=== PATIENT | male | born 1955 | race Caucasian/White ===

== ENCOUNTER → 2018-09-24 | Outpatient (CLI) | payer BC | END | disposition home or self-care (01) | LOC: LAB EV 10:55 → LAB SHORT 10:55 | DX: J02.9 Acute pharyngitis, unspecified (principal) | CPT/HCPCS: 87070 ==

== ENCOUNTER 2019-01-26 12:46 | Observation (INO) | payer BC ==
[~2019-01-26] VITALS: Ht 167.6 cm; Wt 92.4 kg
[2019-01-26] MEDS ORDERED: HUMIRA40 MG/0.8 SC (13:42)
[2019-01-26] MEDS ORDERED: CITA20 PO (13:42)
[2019-01-26] MEDS ORDERED: Terazosin HCl10 MG PO (13:42)
[2019-01-26] MEDS ORDERED: ATEN25 PO (13:43)
[2019-01-26] MEDS ORDERED: METTREX2.5 PO (13:43)
[2019-01-26] MEDS ORDERED: Simvastatin10 MG PO (13:44)
[2019-01-26 14:27] LABS: BASOPHILS ABSOLUTE AUTO 0.03 K/mm3 (0.00-0.23); BASOPHILS PERCENT AUTO 1 % (0-2); EOSINOPHILS ABSOLUTE AUTO 0.07 K/mm3 (0.00-0.68); EOSINOPHILS PERCENT AUTO 1 % (0-6); Hematocrit 40.7 % (37.0-53.0); IMMATURE GRAN ABSOLUTE AUTO 0.01 K/mm3 (0.00-0.10); IMMATURE GRAN PERCENT AUTO 0 % (0-1); LYMPHOCYTES ABSOLUTE AUTO 2.08 K/mm3 (0.84-5.20); LYMPHOCYTES PERCENT AUTO 35 % (21-46); MONOCYTES ABSOLUTE AUTO 0.75 K/mm3 (0.16-1.47); MONOCYTES PERCENT AUTO 13 % (4-13); Mean Corpuscular HGB 30.9 pg (26.0-34.0); Mean Corpuscular HGB Conc 34.4 g/dL (31.5-36.5); Mean Corpuscular Volume 90 fL (80-100); Mean Platelet Volume 9.3 fL (9.1-12.4); NEUTROPHILS ABSOLUTE AUTO 2.99 K/mm3 (1.96-9.15); NEUTROPHILS PERCENT AUTO 50 % (41-73); Platelet Count 226 K/mm3 (150-400); RDW Standard Deviation 42.5 fL (35.1-46.3); Red Blood Cell Count 4.53 M/mm3 (4.30-5.90); White Blood Cell Count 5.93 K/mm3 (4.00-11.30)
[2019-01-26 14:32] LABS: Alanine Aminotransfer (ALT/SGP 39 U/L (12-78); Albumin, Blood 3.9 g/dL (3.4-5.0); Albumin/Globulin Ratio 1.1 (0.8-1.8); Alk Phos 54 U/L (50-136); Anion Gap 6 mmol/L (6-16); Aspartate Aminotrans (AST/SGOT 21 U/L (12-37); Bilirubin, Total 0.2 mg/dL (0.1-1.0); Blood Urea Nitrogen 15 mg/dL (8-24); Bun/Creatinine Ratio 17.1 (12.0-20.0); CO2, Blood 26 mmol/L (21-32); Calcium, Blood 8.5 mg/dL (8.5-10.1); Chloride, Blood 110 mmol/L (98-108); Creatinine, Blood 0.88 mg/dL (0.60-1.20); Globulin, Blood 3.4 g/dL (2.2-4.0); Glomerular Filtration Rate >60 (60-); Glucose, Blood 98 mg/dL (70-99); Potassium, Blood 3.9 mmol/L (3.5-5.5); Sodium, Blood 142 mmol/L (136-145); Total Protein, Blood 7.3 g/dL (6.4-8.2); Troponin I <0.015 ng/mL (0.000-0.040)
[2019-01-26] MEDS ORDERED: ASPI325EC PO (16:19)
[2019-01-26] MEDS ORDERED: PHENY30ER PO (16:20)
--- NOTE | 2019-01-26 18:01 | NUR ---
ER ADMIT- PT ARRIVED TO ROOM 308 VIA GURNEY. PT INDEP INTO BED. PT A/0X4. REPORTS 2/10 PAIN TO RIGHT SHOULDER FROM HX ROTATOR CUFF TEAR. LS CLEAR, ON RA. HRR, TELE NSR AT 88 PT DENIES ANY CP. PT SITTING UP AT BEDSIDE TALKING WITH FAMILY EATING DINNER. STRESS TEST TOMORROW AM. PT ORIENTED TO ROOM AND CALL SYSTEM, CALL LIGHT IN REACH.
[2019-01-27 03:07] LABS: BASOPHILS ABSOLUTE AUTO 0.04 K/mm3 (0.00-0.23); BASOPHILS PERCENT AUTO 1 % (0-2); EOSINOPHILS ABSOLUTE AUTO 0.14 K/mm3 (0.00-0.68); EOSINOPHILS PERCENT AUTO 2 % (0-6); Hematocrit 40.9 % (37.0-53.0); Hemoglobin 13.9 g/dL (13.5-17.5); IMMATURE GRAN ABSOLUTE AUTO 0.01 K/mm3 (0.00-0.10); IMMATURE GRAN PERCENT AUTO 0 % (0-1); LYMPHOCYTES PERCENT AUTO 45 % (21-46); MONOCYTES ABSOLUTE AUTO 0.73 K/mm3 (0.16-1.47); MONOCYTES PERCENT AUTO 12 % (4-13); Mean Corpuscular HGB 30.6 pg (26.0-34.0); Mean Corpuscular Volume 90 fL (80-100); Mean Platelet Volume 9.1 fL (9.1-12.4); NEUTROPHILS ABSOLUTE AUTO 2.51 K/mm3 (1.96-9.15); NEUTROPHILS PERCENT AUTO 40 % (41-73); Platelet Count 212 K/mm3 (150-400); RDW Coefficient Variation 12.9 % (11.7-14.2); RDW Standard Deviation 42.3 fL (35.1-46.3); Red Blood Cell Count 4.54 M/mm3 (4.30-5.90); White Blood Cell Count 6.23 K/mm3 (4.00-11.30)
[2019-01-27 03:24] LABS: Anion Gap 4 mmol/L (6-16); Blood Urea Nitrogen 18 mg/dL (8-24); Bun/Creatinine Ratio 19.8 (12.0-20.0); CO2, Blood 29 mmol/L (21-32); Calcium, Blood 8.4 mg/dL (8.5-10.1); Chloride, Blood 108 mmol/L (98-108); Creatinine, Blood 0.91 mg/dL (0.60-1.20); Glomerular Filtration Rate >60 (60-); Glucose, Blood 92 mg/dL (70-99); Potassium, Blood 3.8 mmol/L (3.5-5.5); Sodium, Blood 141 mmol/L (136-145)
--- NOTE | 2019-01-27 04:53 | NUR ---
SHIFT SUMMARY: PT IS ALERT AND ORIENTED. PT IS CALM AND COOPERATIVE WITH CARE. PT CALLS APPROPRIATELY. PT IS INDEPENDENT IN THE ROOM. PT NPO @ 0300 FOR STRESS TEST THIS AM. PT DENIES PAIN, NAUSEA, VOMITING, AND SOB. PT SLEPT MUCH OF THE NIGHT WHEN NOT DISTURBED. NO ACUTE CHANGES OR COMPLICATIONS THIS SHIFT. BED IN LOW POSITION, CALL LIGHT WITHIN REACH. WILL CONTINUE TO MONITOR.
--- NOTE | 2019-01-27 14:54 | NUR ---
Patient and , Bailey are waiting for "pictures" to be taken of patient's heart. Patient states that the chest pains he had when he came in to the hospital with have completely stopped. Patient's nurse came in to patient's room to set him up for his shower and so I asked patient if I could pray for him and he affirmed that he would like that. I provided prayer. Patient and Bailey thanked me.
--- NOTE | 2019-01-27 17:02 | NUR ---
SHIFT SUMMARY- PT A/OX4, INDEP IN ROOM. PT DENIES ANY COMPLAINTS T/O THE SHIFT. LE CLEAR, ON RA. HRR, TELE NSR AT 73. STRESS TEST COMPLETED AND CAME BACK ABNORMAL, AWAITING CARDIOLOGY CONSULT. NO OTHER ACUTE CHANGES THIS SHIFT.
--- NOTE | 2019-01-27 17:02 | NUR ---
SPOKE WITH DR FRIEDMAN, PER DR FRIEDMAN STRESS TEST RESULTS WERE ABNORMAL. HE WILL KEEP PT AND PLACE CONSULT FOR CARDIOLOGY.
--- NOTE | 2019-01-27 17:20 | NUR ---
CONSULT CALLED INTO [facility] FOR DR HARLEY FOR THURSDAY THE , PER DR VILLATORO THEY DO NOT TAKE CONSULTS AFTER 1700 UNLESS ITS AN EMERGENCY.
--- NOTE | 2019-01-28 04:29 | NUR ---
SHIFT SUMMARY: PT IS ALERT AND ORIENTED. PT IS CALM AND COOPERATIVE WITH CARE. PT CALLS APPROPRIATELY. PT IS INDEPENDENT IN THE ROOM. PT TO HAVE SECOND PART OF STRESS TEST THIS AM, NPO 4 HOURS PRIOR TO PROCEDURE. PT DENIES PAIN, NAUSEA, VOMITING, AND SOB. NO ACUTE CHANGES OR COMPLICATIONS THIS SHIFT. WILL CONTINUE TO MONITOR.
[2019-01-28] MEDS ORDERED: Isosorbide Mono30 MG PO (11:11)
[2019-01-28] MEDS ORDERED: NITR.4SL SL (11:12)
--- NOTE | 2019-01-28 11:35 | NUR ---
DISCHARGE SUMMARY PT DISCHARGED TO HOME. PT EDUCATED ON NEW MEDICATIONS, TO FOLLOW UP WITH DR HARLEY PER APPOINTMENT AND PCP WITHIN ONE WEEK. PT AGREES AND EXPRESSES UNDERSTANDING. PT LEFT ROOM VIA WHEELCHAIR AND [employer]ORT AT 1130.
== END 2019-01-28 11:29 | disposition home or self-care (01) ==
LOC: ER 12:46 → MEDS 12:47
PROVIDERS: Emergency Medicine; ADMIT Hospitalist
DX: R07.89 Other chest pain (principal); G40.909 Epilepsy, unspecified, not intractable, without status epilepticus; I10 Essential (primary) hypertension; F41.9 Anxiety disorder, unspecified; L40.9 Psoriasis, unspecified; N40.0 Benign prostatic hyperplasia without lower urinary tract symptoms; I25.10 Atherosclerotic heart disease of native coronary artery without angina pectoris; I35.8 Other nonrheumatic aortic valve disorders; I51.7 Cardiomegaly; E78.5 Hyperlipidemia, unspecified; F31.9 Bipolar disorder, unspecified; Z82.49 Family history of ischemic heart disease and other diseases of the circulatory system; Z88.8 Allergy status to other drugs, medicaments and biological substances
CPT/HCPCS: 36415; 71046; 78452; 80048; 80053; 84484; 85025; 93005; 93010; 93017; 93306; 96372; 96374; 99285-25; A9500; G0378; J0706; J1650; J2785; J3010

== ENCOUNTER 2020-02-28 13:26 | Observation (INO) | payer MEDICARE, BC ==
[~2020-02-28] VITALS: Ht 167.6 cm; Wt 88.5 kg
[~2020-02-28 13:26] MED LIST: ATEN25 PO; Aspirin EC81 MG PO; CITA20 PO; HUMIRA40 MG/0.8 SC; Isosorbide Mono30 MG PO; METTREX2.5 PO; NITR.4SL SL; PHENY30ER PO; Simvastatin10 MG PO; Terazosin HCl10 MG PO
[2020-02-28 14:13] LABS: BASOPHILS ABSOLUTE AUTO 0.05 K/mm3 (0.00-0.23); BASOPHILS PERCENT AUTO 1 % (0-2); EOSINOPHILS ABSOLUTE AUTO 0.08 K/mm3 (0.00-0.68); EOSINOPHILS PERCENT AUTO 1 % (0-6); Hematocrit 43.1 % (37.0-53.0); Hemoglobin 14.6 g/dL (13.5-17.5); IMMATURE GRAN ABSOLUTE AUTO 0.02 K/mm3 (0.00-0.10); IMMATURE GRAN PERCENT AUTO 0 % (0-1); LYMPHOCYTES PERCENT AUTO 42 % (21-46); MONOCYTES ABSOLUTE AUTO 0.61 K/mm3 (0.16-1.47); MONOCYTES PERCENT AUTO 11 % (4-13); Mean Corpuscular HGB 31.1 pg (26.0-34.0); Mean Corpuscular HGB Conc 33.9 g/dL (31.5-36.5); Mean Corpuscular Volume 92 fL (80-100); Mean Platelet Volume 9.2 fL (9.1-12.4); NEUTROPHILS ABSOLUTE AUTO 2.55 K/mm3 (1.96-9.15); NEUTROPHILS PERCENT AUTO 45 % (41-73); Platelet Count 238 K/mm3 (150-400); RDW Coefficient Variation 12.9 % (11.7-14.2); RDW Standard Deviation 43.3 fL (35.1-46.3); Red Blood Cell Count 4.69 M/mm3 (4.30-5.90); White Blood Cell Count 5.71 K/mm3 (4.00-11.30)
[2020-02-28 14:39] LABS: Troponin I <0.015 ng/mL (0.000-0.040)
[2020-02-28 14:47] LABS: Alanine Aminotransfer (ALT/SGP 45 U/L (12-78); Albumin, Blood 3.9 g/dL (3.4-5.0); Albumin/Globulin Ratio 1.1 (0.8-1.8); Alk Phos 58 U/L (50-136); Anion Gap 3 mmol/L (6-16); Aspartate Aminotrans (AST/SGOT 24 U/L (12-37); Bilirubin, Total 0.3 mg/dL (0.1-1.0); Blood Urea Nitrogen 15 mg/dL (8-24); Bun/Creatinine Ratio 18.1 (12.0-20.0); CO2, Blood 26 mmol/L (21-32); Calcium, Blood 8.6 mg/dL (8.5-10.1); Chloride, Blood 108 mmol/L (98-108); Creatinine, Blood 0.83 mg/dL (0.60-1.20); Globulin, Blood 3.7 g/dL (2.2-4.0); Glomerular Filtration Rate >60 (60-); Glucose, Blood 96 mg/dL (70-99); Potassium, Blood 3.9 mmol/L (3.5-5.5); Sodium, Blood 137 mmol/L (136-145); Total Protein, Blood 7.6 g/dL (6.4-8.2)
[2020-02-28] MEDS ORDERED: CELEXA10 MG PO (18:28)
[2020-02-28] MEDS ORDERED: PHENYTOIN SODI100 MG PO (18:28)
[2020-02-28] MEDS ORDERED: PHENY30ER PO (18:31)
[2020-02-28] MEDS ORDERED: FOLI1 PO (18:36)
[2020-02-28] MEDS ORDERED: HUMIRA40 MG/0.2 SC (18:37)
--- NOTE | 2020-02-28 18:50 | NUR ---
PCU ADMIT NOTE PATIENT AMBULATED FROM [facility] IN [place] TO UNIT BED - TOLERATED WELL. ALERT AND ORIENTED X4. INDEPENDENT IN ROOM DENIES ANY PAIN AT THIS TIME. ON ROOM AIR. NSR. VSS. WILL CONTINUE TO MONTOR AND REPORT TO NOC SHIFT RN. ORIENTED TO ROOM. PLAN: TREND TROPS
--- NOTE | 2020-02-29 03:43 | NUR ---
ASSUMED CARE OF PATIENT AT 1915. PATIENT HERE FOR ANGINA BUT HAS NO CURRENT COMPLAINTS OF CHEST PAIN. PATIENT RECEIVED DINNER AND EDUCATED ON NPO STATUS STARTING AT MIDNIGHT. PATIENT AGREEABLE AND ANTICIPATING ANGIOGRAM IN THE AM. NO DIZZINESS OR SOB AT REST OR AMBULATION. PATIENT SLEPT THROUGHOUT THE NIGHT. WILL CONTINUE TO MONITOR UNTIL END OF SHIFT.
--- NOTE | 2020-02-29 08:06 | NUR ---
AM NOTE... ASSUMED CARE OF PT APROX 0700, PT IS A&Ox4 AND IND IN THE ROOM. PT WAS ADMITTED FOR ANGINA, PT CURRENTLY DENIES ANY CHEST PAIN/PRESSURE N/V OR SOB. PT IS IN NSR IN THE 70'S. NO EDEMA NOTED ON ASSESSMENT. L/S CLEAR T/O ON RA. BT PRESENT AND HYPERACTIVE, ABD IS SOFT AND NONTENDER TO PALP. PT HAS BEEN NPO SINCE MIDNIGHT FOR ANGIO TODAY. PT HAS BEEN IND TO THE BATHROOM TO VOID. CALL LIGHT IN REACH WILL CONTINUE TO MONITOR.
--- NOTE | 2020-02-29 13:21 | NUR ---
Patient is lying in bed and alert. Patient tells me that he will have a procedure done today to take a look at his heart. Patient shares that he is anxious about the angiogram. Patient's spouse, Bailey is bedside. They explain about their devotion to [place] and the Bible. They explain about the strength and peace that they find in their [place]orm[place]. I listen empathically, normalize patient's experience, reinforce helpful attitudes and practices and provide pastoral grief counselor and prayer. Patient responds well and shows signs of reduced stress. I will continue to remain available to aptient and family.
--- NOTE | 2020-02-29 17:52 | NUR ---
SHIFT SUMMARY... NO ACUTE NEGATIVE CHANGES NOTED THIS SHIFT. PT HAS BEEN NPO ALL DAY WAITING FOR ANGIO TODAY. VS HAVE REMAINED STABLE. PT DENIES ANY CHEST PAIN/PRESSURE N/V OR SOB. PT'S HAS BEEN AT THE BEDSIDE T/O SHIFT. PT HAS BEEN IND TO THE BATHROOM NOT USING THE URNIAL. CALL LIGHT IN REACH WILL CONTINUE TO MONITOR UNTIL REPORT IS GIVEN TO ONCOMING RN.
--- NOTE | 2020-02-29 22:40 | NUR ---
UPDATE PT RECIEVED ANGIO AT START OF SHIFT; TR BAND IN PLACE; ARM BOARD IN PLACE; EXTENSIVE EDUCATION ON NOT USING R ARM AND PT EXPRESSED UNDERSTANDING; APPROXIMATELY @ 2230 PT WENT TO THE BATHROOM AND HAD SMALL AMOUNT OF URINATION ON THE FLOOR THAT HE ATTEMPTED TO CLEAN UP, THE TELE BOX FELL OUT OF HIS POCKET AND HE STATES HE TRIED TO CATCH IT; UPON ENTERING THE ROOM PT WAS FOUND TO BE HOLDING OUT HIS RIGHT ARM FROM HIS BODY W/ BLOOD ON THE FLOOR AND HIS GOWN; PRESSURE WAS HELD ON ARM AT RADIAL SITE AND SPEEDER HAND WAS CALLED TO THE [facility] FOR ASSISTANCE; PT SAT AT BEDSIDE W/ THIS RN HOLDING PRESSURE; OCTAVIO, SPEEDER HAND PROCEEDED TO ASSESS AND CLEAN PATIENT AND FLOOR; TR BAND WAS RE-INFLATED W/ THE 4 CC OF AIR THAT HAD BEEN REMOVED; PT STATES HE FEELS FINE; PT ASSITED TO BED; VSS; NSR NOTED ON TELE; TR BAND IN PLACE; ARM BOARD IN PLACE; CALL LIGHT IN REACH; BED IN LOWEST POSITION.
--- NOTE | 2020-03-01 06:48 | NUR ---
SHIFT SUMMARY PT A&O; DENIES CHEST PAIN; NSR NOTED ON TELE; VSS; TR BAND REMOVED @ 0530 AND FOREARM CLEANED OF DRIED BLOOD; TEGADERM PLACED, ARM BOARD IN PLACE; O2 SATS >93 ON RA; PT AMBULATES FOR BRP W/ NO GAIT DISTURBANCE NOTED; PT SLEPT SEVERAL HOURS IN BETWEEN INTERVENTIONS; CALL LIGHT IN REACH; BED IN LOWEST POSITION; WILL CONTINUE TO MONITOR CLOSELY UNTIL HAND OFF TO DAY SHIFT RN.
[2020-03-01] MEDS ORDERED: Isosorbide Mono30 MG PO (12:26)
[2020-03-01] MEDS ORDERED: BUSP5 PO (12:27)
--- NOTE | 2020-03-01 13:01 | NUR ---
Patient is standing in patient's rm and looking ready to DC. Patient's spouse, Bailey, is present. Patient tells me about the procedure that took place the prior night. Patient is grateful for the outcome. Patient and Bailey talk about the pandemic and how it is effecting them. No spiritual distress is detected. I provide a prayer of blessing as the prepare to DC.
--- NOTE | 2020-03-01 14:29 | NUR ---
PCU DISCHARGE SUMMARY PATIENT ALERT AND ORIENTED X4. RESP E/U ON ROOM AIR. NSR WITH NO CARDIAC EVENTS PER BROOMMAKING SUPERVISORTECH. MEDINA VERBALIZED UNDERSTANDING OF WRITTEN AND VERBAL DISCHARGE INSTRUCTIONS. NEW MEDICATIONS CALLED INTO [facility]. PATIENT LEFT UNIT VIA AMBULATION HOME WITH WITH BELONGINGS.
== END 2020-03-01 13:15 | disposition home or self-care (01) ==
LOC: ER 13:26 → PCU 13:30
PROVIDERS: Physician Assistant; ADMIT Internal Medicine
DX: I25.110 Atherosclerotic heart disease of native coronary artery with unstable angina pectoris (principal); F42.9 Obsessive-compulsive disorder, unspecified; I10 Essential (primary) hypertension; L40.50 Arthropathic psoriasis, unspecified; G40.909 Epilepsy, unspecified, not intractable, without status epilepticus; Z88.8 Allergy status to other drugs, medicaments and biological substances; Z91.040 Latex allergy status; F41.9 Anxiety disorder, unspecified; F32.9 Major depressive disorder, single episode, unspecified; E78.5 Hyperlipidemia, unspecified; N40.0 Benign prostatic hyperplasia without lower urinary tract symptoms; E66.9 Obesity, unspecified; Z87.891 Personal history of nicotine dependence; Z79.82 Long term (current) use of aspirin; Z79.899 Other long term (current) drug therapy; Z68.31 Body mass index [BMI] 31.0-31.9, adult
CPT/HCPCS: 36415; 71046; 76937; 80053; 84484; 85025; 93005; 93010; 93454; 96372; 99152; 99285-25; A9270-GY; C1769; C1894; G0378; J1644; J1650; J2250; J3010; J7030; Q9967

== ENCOUNTER 2021-02-04 12:05 | Day surgery (SDC) | payer MEDICARE, BC ==
[~2021-02-04] VITALS: Ht 167.6 cm; Wt 188.2 kg
[~2021-02-04 12:05] MED LIST changes: +BUSP5 PO; +CELEXA10 MG PO; +FOLI1 PO; +HUMIRA40 MG/0.2 SC; +PHENYTOIN SODI100 MG PO
[2021-02-04] MEDS ORDERED: METO25ER (12:34)
--- NOTE | 2021-02-04 12:41 | NUR ---
02/04/21 1241 Arely Garcias USED PREP.
--- NOTE | 2021-02-04 14:38 | NUR ---
02/04/21 1438 Leonila Tejeda S PT. STATES "MY STOMACH DOESN'T FEEL VERY WELL." PT. DENIES THAT HE FEELS LIKE HE IS GOING TO THROW UP. PT. VERBALIZES HIS STOMACH DOESN'T FEEL GOOD WHEN HE GETS TIRED. DR. PASCUAL AWARE. PT. GIVEN SOME [employer]IST * CRACKERS & PAVEL CRACKERS IN WHICH PT. VERBALIZED FEELING BETTER AFTER EATING SOMETHING.
== END 2021-02-04 14:25 | disposition home or self-care (01) ==
LOC: ORSCSDS 12:05
PROVIDERS: Student in an Organized Health Care Education/Training Program
PROC: 0DBH8ZX Excision of Cecum, Via Natural or Artificial Opening Endoscopic, Diagnostic (ICD-10-PCS; principal; 2021-02-04 13:30)
PROC: 0DBL8ZX Excision of Transverse Colon, Via Natural or Artificial Opening Endoscopic, Diagnostic (ICD-10-PCS; principal; 2021-02-04 13:30)
PROC: 0DBN8ZX Excision of Sigmoid Colon, Via Natural or Artificial Opening Endoscopic, Diagnostic (ICD-10-PCS; principal; 2021-02-04 13:30)
DX: R19.5 Other fecal abnormalities (principal); D12.0 Benign neoplasm of cecum; D12.3 Benign neoplasm of transverse colon; D12.5 Benign neoplasm of sigmoid colon; K57.30 Diverticulosis of large intestine without perforation or abscess without bleeding; K64.8 Other hemorrhoids; I10 Essential (primary) hypertension; E78.5 Hyperlipidemia, unspecified; L40.50 Arthropathic psoriasis, unspecified; G40.909 Epilepsy, unspecified, not intractable, without status epilepticus; Z79.899 Other long term (current) drug therapy
CPT/HCPCS: 88305; J2704; J7120

== ENCOUNTER 2023-08-09 11:13 | Emergency (ER) | payer MEDICARE, BC ==
[~2023-08-09] VITALS: Ht 167.6 cm; Wt 88.5 kg
[~2023-08-09 11:13] MED LIST changes: +METO25ER
[2023-08-09] MEDS ORDERED: ESCI20 PO (11:33)
[2023-08-09] MEDS ORDERED: ZYRTEC10 M2 PO (11:33)
[2023-08-09] MEDS ORDERED: NAPR220 PO (11:33)
[2023-08-09 11:44] LABS: BASOPHILS ABSOLUTE AUTO 0.05 K/mm3 (0.00-0.23); BASOPHILS PERCENT AUTO 0 % (0-2); EOSINOPHILS ABSOLUTE AUTO 0.04 K/mm3 (0.00-0.68); EOSINOPHILS PERCENT AUTO 0 % (0-6); Hematocrit 43.4 % (37.0-53.0); Hemoglobin 15.1 g/dL (13.5-17.5); IMMATURE GRAN ABSOLUTE AUTO 0.05 K/mm3 (0.00-0.10); IMMATURE GRAN PERCENT AUTO 0 % (0-1); LYMPHOCYTES ABSOLUTE AUTO 2.01 K/mm3 (0.84-5.20); LYMPHOCYTES PERCENT AUTO 17 % (21-46); MONOCYTES ABSOLUTE AUTO 0.77 K/mm3 (0.16-1.47); MONOCYTES PERCENT AUTO 6 % (4-13); Mean Corpuscular HGB 31.2 pg (26.0-34.0); Mean Corpuscular HGB Conc 34.8 g/dL (31.5-36.5); Mean Corpuscular Volume 90 fL (80-100); Mean Platelet Volume 8.8 fL (9.1-12.4); NEUTROPHILS ABSOLUTE AUTO 9.22 K/mm3 (1.96-9.15); NEUTROPHILS PERCENT AUTO 76 % (41-73); Platelet Count 248 K/mm3 (150-400); RDW Coefficient Variation 13.2 % (11.7-14.2); RDW Standard Deviation 43.1 fL (35.1-46.3); Red Blood Cell Count 4.84 M/mm3 (4.30-5.90); White Blood Cell Count 12.14 K/mm3 (4.00-11.30)
[2023-08-09 12:13] LABS: Albumin, Blood 3.8 g/dL (3.4-5.0); Bilirubin, Total 0.3 mg/dL (0.1-1.0); Bun/Creatinine Ratio 19.6 (12.0-20.0); Calcium, Blood 8.8 mg/dL (8.5-10.1); Creatinine, Blood 0.82 mg/dL (0.60-1.20); Globulin, Blood 3.8 g/dL (2.2-4.0); Potassium, Blood 4.3 mmol/L (3.5-5.5); Total Protein, Blood 7.6 g/dL (6.4-8.2)
[2023-08-09 14:53] VITALS: BP 134/87
== END 2023-08-09 14:53 | disposition home or self-care (01) ==
LOC: ER 11:13
PROVIDERS: Physician Assistant
DX: R07.9 Chest pain, unspecified (principal); Z91.040 Latex allergy status; Z88.8 Allergy status to other drugs, medicaments and biological substances; Z79.899 Other long term (current) drug therapy; Z79.82 Long term (current) use of aspirin; G40.909 Epilepsy, unspecified, not intractable, without status epilepticus; I10 Essential (primary) hypertension; Z87.891 Personal history of nicotine dependence
CPT/HCPCS: 71046; 80053; 84484; 85025; 93005; 93010; 99285-25